=== PATIENT | female | born 1945 | race Caucasian/White ===

== ENCOUNTER 2020-10-14 07:45 | Outpatient (REF) | payer MEDICARE, SELFPAY ==
[2020-10-14 10:03] LABS: MANUAL DIFF FLAG NO
[2020-10-14 10:05] LABS: Basophils Absolute Auto 0.1 X10*3/uL (0.0-0.2); Basophils Percent Auto 0.9 % (0-2); Eosinophils Absolute Auto 0.1 X10*3/uL (0.0-0.4); Eosinophils Percent Auto 1.6 % (0-4); Hematocrit 35.2 % (37-47); Hemoglobin 11.4 g/dl (12.0-16.0); Imm Gran Abs Auto 0.02 X10*3/uL (0.00-0.03); Imm Gran Pct Auto 0.3 % (0.0-0.4); Lymphocytes Absolute Auto 1.6 X10*3/uL (1.2-4.9); Lymphocytes Percent Auto 23.1 % (20-40); Mean Corpuscular HGB Conc 32.4 g/dl (31.0-35.0); Mean Corpuscular Hemoglobin 31.4 pg (27.0-33.0); Mean Platelet Volume 9.8 fL (9.4-12.3); Monocytes Absolute Auto 0.7 X10*3/uL (0.1-1.2); Monocytes Percent Auto 10.2 % (2-11); Neutrophils Absolute Auto 4.4 X10*3/uL (2.0-8.3); Neutrophils Percent Auto 63.9 % (45-73); Platelet Count 321 X10*3/uL (160-400); Red Blood Count 3.63 X10*6/uL (4.20-5.50); Red Cell Distribution Width 13.2 % (11.0-16.0); White Blood Count 6.9 X10*3/uL (4.8-10.8)
[2020-10-14 10:54] LABS: Alanine Aminotransferase 18 U/L (0-31); Albumin Level 4.3 g/dL (3.5-5.0); Alkaline Phosphatase 66 U/L (39-117); Anion Gap 15 (12-20); Aspartate Amino Transferase 15 U/L (5-31); Bilirubin Total 0.4 mg/dL (0.0-1.0); Blood Urea Nitrogen 46 mg/dL (9-16); Calcium 9.6 mg/dL (8.4-10.2); Carbon Dioxide 25 mmol/L (22-29); Chloride 103 mmol/L (96-108); Cholesterol 248 mg/dL; Estimated Glomerular Filt Rate 40; Glucose Fasting 104 mg/dL (60-99); HDL Cholesterol 82 mg/dL; LDL Cholesterol Calculated 155 mg/dl; Potassium 5.5 mmol/L (3.3-5.1); Sodium 137 mmol/L (135-145); Total Protein 7.5 g/dL (6.5-8.0); Triglycerides 58 mg/dL
== END 2020-10-14 07:46 | disposition home or self-care (01) ==
LOC: HO.10HDL 07:45
PROVIDERS: Visit Provider Physician Assistant
DX: Z00.00 Encounter for general adult medical examination without abnormal findings (principal); Z13.6 Encounter for screening for cardiovascular disorders
CPT/HCPCS: 36415; 80053; 80061; 85025

== ENCOUNTER 2020-10-28 10:56 | Outpatient (REF) | payer MEDICARE, SELFPAY ==
[2020-10-28 13:51] LABS: Alanine Aminotransferase 16 U/L (0-31); Albumin Level 4.3 g/dL (3.5-5.0); Alkaline Phosphatase 65 U/L (39-117); Anion Gap 16 (12-20); Aspartate Amino Transferase 14 U/L (5-31); Bilirubin Total 0.5 mg/dL (0.0-1.0); Blood Urea Nitrogen 33 mg/dL (9-16); Calcium 9.3 mg/dL (8.4-10.2); Carbon Dioxide 25 mmol/L (22-29); Chloride 101 mmol/L (96-108); Estimated Glomerular Filt Rate 51; Glucose Fasting 96 mg/dL (60-99); Potassium 4.5 mmol/L (3.3-5.1); Sodium 137 mmol/L (135-145); Total Protein 7.5 g/dL (6.5-8.0)
== END 2020-10-28 10:57 | disposition home or self-care (01) ==
LOC: HO.MANLDS 10:56
PROVIDERS: PCP Internal Medicine; Visit Provider Physician Assistant
DX: E87.5 Hyperkalemia (principal)
CPT/HCPCS: 36415; 80053

== ENCOUNTER 2021-07-02 07:16 | Outpatient (REF) | payer MEDICARE, SELFPAY ==
--- NOTE | ~2021-07-02 | MM_ITS ---
EXAMINATION: MM SCREENING DIGITAL BREAST TOMOSYNTHESIS, BILATERAL CLINICAL INFORMATION: Screening. Asymptomatic. The lifetime risk of breast cancer based on the Tyrer-Cuzick Model is 2.7%. COMPARISON: Mammography: September 22, 2018 and studies dating back to July 23, 2013 TECHNIQUE: Digital breast tomosynthesis is performed in both the craniocaudal and mediolateral oblique views along with computer-aided detection (CAD). Synthesized 2D images are generated from the tomosynthesis. FINDINGS: The breasts are almost entirely fatty (ACR BI-RADS breast composition Category a). There are no significant masses, abnormal calcifications, or other abnormalities. MM/MM tomosynthesis screening BI IMPRESSION: There are no significant changes from prior study. ASSESSMENT: BI-RADS 1: Negative RECOMMENDATION: Routine annual mammography screening. This patient's information was entered into a reminder system with a target due date for their next mammogram.
== END 2021-07-02 07:17 | disposition home or self-care (01) ==
LOC: HO.MAMMO 07:16
PROVIDERS: PCP Physician Assistant; Visit Provider Internal Medicine
DX: Z12.31 Encounter for screening mammogram for malignant neoplasm of breast (principal)
CPT/HCPCS: 77063; 77067

== ENCOUNTER 2021-11-09 09:44 | Outpatient (REF) | payer MEDICARE, SELFPAY ==
[2021-11-09 11:20] LABS: MANUAL DIFF FLAG NO
[2021-11-09 11:25] LABS: Basophils Absolute Auto 0.1 X10*3/uL (0.0-0.2); Eosinophils Absolute Auto 0.1 X10*3/uL (0.0-0.4); Eosinophils Percent Auto 0.7 % (0-4); Hematocrit 35.5 % (37.0-47.0); Hemoglobin 11.7 g/dl (12.0-16.0); Imm Gran Abs Auto 0.03 X10*3/uL (0.00-0.03); Imm Gran Pct Auto 0.4 % (0.0-0.4); Lymphocytes Absolute Auto 1.3 X10*3/uL (1.2-4.9); Mean Corpuscular Hemoglobin 31.1 pg (27.0-33.0); Mean Corpuscular Volume 94.4 fL (80.0-98.0); Mean Platelet Volume 9.8 fL (9.4-12.3); Monocytes Absolute Auto 0.6 X10*3/uL (0.1-1.2); Monocytes Percent Auto 8.7 % (2-11); Neutrophils Absolute Auto 4.7 x10*3/uL (2.0-8.3); Neutrophils Percent Auto 70.2 % (45-73); Platelet Count 309 X10*3/uL (160-400); Red Blood Count 3.76 X10*6/uL (4.20-5.50); Red Cell Distribution Width 13.4 % (11.0-16.0); White Blood Count 6.7 X10*3/uL (4.8-10.8)
[2021-11-09 11:45] LABS: Alanine Aminotransferase 14 U/L (0-31); Albumin Level 4.3 g/dL (3.5-5.0); Alkaline Phosphatase 70 U/L (39-117); Anion Gap 15 (12-20); Aspartate Amino Transferase 14 U/L (5-31); Bilirubin Total 0.6 mg/dL (0.0-1.0); Blood Urea Nitrogen 29 mg/dL (9-16); Calcium 9.5 mg/dL (8.4-10.2); Carbon Dioxide 25 mmol/L (22-29); Chloride 103 mmol/L (96-108); Cholesterol 249 mg/dL; Estimated Glomerular Filt Rate 47; Glucose Random 114 mg/dL (60-115); HDL Cholesterol 72 mg/dL; LDL Cholesterol Calculated 162 mg/dl; Potassium 4.8 mmol/L (3.3-5.1); Sodium 138 mmol/L (135-145); Total Protein 7.6 g/dL (6.5-8.0); Triglycerides 79 mg/dL
== END 2021-11-09 09:45 | disposition home or self-care (01) ==
LOC: HO.MANLDS 09:44
PROVIDERS: Visit Provider Physician Assistant
DX: Z00.00 Encounter for general adult medical examination without abnormal findings (principal)
CPT/HCPCS: 36415; 80053; 80061; 85025

== ENCOUNTER 2022-07-09 07:20 | Outpatient (REF) | payer MEDICARE, SELFPAY ==
--- NOTE | ~2022-07-09 | MM_ITS ---
EXAMINATION: MM SCREENING DIGITAL BREAST TOMOSYNTHESIS, BILATERAL CLINICAL INFORMATION: Screening. Asymptomatic. The lifetime risk of breast cancer based on the Tyrer-Cuzick Model is 3%. COMPARISON: Mammography: 07/02/2021, 09/22/2018, 09/16/2017 TECHNIQUE: Digital breast tomosynthesis is performed in both the craniocaudal and mediolateral oblique views along with computer-aided detection (CAD). Synthesized 2D images are generated from the tomosynthesis. FINDINGS: The breasts are almost entirely fatty (ACR BI-RADS breast composition Category a). There are no significant masses, abnormal calcifications, or other abnormalities. Background stromal markings are similar to prior studies. No developing density or architectural abnormality. There is a biopsy clip marker again noted anterior 12:30 left breast. The axilla are unremarkable. MM/MM tomosynthesis screening BI IMPRESSION: No mammographic evidence of malignancy. ASSESSMENT: BI-RADS 1: Negative RECOMMENDATION: Routine annual mammography screening. This patient's information was entered into a reminder system with a target due date for their next mammogram.
== END 2022-07-09 07:21 | disposition home or self-care (01) ==
LOC: HO.MAMMO 07:20
PROVIDERS: PCP Physician Assistant; Visit Provider Physician Assistant
DX: Z12.31 Encounter for screening mammogram for malignant neoplasm of breast (principal)
CPT/HCPCS: 77063; 77067

== ENCOUNTER 2022-11-22 09:38 | Outpatient (REF) | payer MEDICARE, SELFPAY ==
[2022-11-22 11:16] LABS: MANUAL DIFF FLAG NO
[2022-11-22 11:59] LABS: Basophils Absolute Auto 0.1 X10*3/uL (0.0-0.2); Basophils Percent Auto 1.2 % (0-2); Eosinophils Absolute Auto 0.1 X10*3/uL (0.0-0.4); Hematocrit 35.6 % (37.0-47.0); Hemoglobin 11.5 g/dl (12.0-16.0); Imm Gran Abs Auto 0.02 X10*3/uL (0.00-0.03); Imm Gran Pct Auto 0.3 % (0.0-0.4); Lymphocytes Absolute Auto 1.3 X10*3/uL (1.2-4.9); Mean Corpuscular HGB Conc 32.3 g/dl (31.0-35.0); Mean Corpuscular Hemoglobin 29.9 pg (27.0-33.0); Mean Corpuscular Volume 92.7 fL (80.0-98.0); Monocytes Absolute Auto 0.6 X10*3/uL (0.1-1.2); Monocytes Percent Auto 9.7 % (2-11); Neutrophils Absolute Auto 3.9 x10*3/uL (2.0-8.3); Neutrophils Percent Auto 65.8 % (45-73); Platelet Count 325 X10*3/uL (160-400); Red Blood Count 3.84 X10*6/uL (4.20-5.50); Red Cell Distribution Width 13.6 % (11.0-16.0)
[2022-11-22 12:01] LABS: Alanine Aminotransferase 12 U/L (0-31); Albumin Level 4.3 g/dL (3.5-5.0); Alkaline Phosphatase 60 U/L (39-117); Anion Gap 15 (12-20); Aspartate Amino Transferase 11 U/L (5-31); Bilirubin Total 0.6 mg/dL (0.0-1.0); Blood Urea Nitrogen 36 mg/dL (9-16); Calcium 10.2 mg/dL (8.4-10.2); Carbon Dioxide 24 mmol/L (22-29); Chloride 105 mmol/L (96-108); Cholesterol 246 mg/dL; Estimated Glomerular Filt Rate 42; Glucose Random 102 mg/dL (60-115); HDL Cholesterol 64 mg/dL; LDL Cholesterol Calculated 162 mg/dl; Potassium 4.7 mmol/L (3.3-5.1); Sodium 139 mmol/L (135-145); Total Protein 7.7 g/dL (6.5-8.0); Triglycerides 102 mg/dL
== END 2022-11-22 09:39 | disposition home or self-care (01) ==
LOC: HO.MANLDS 09:38
PROVIDERS: Visit Provider Physician Assistant
DX: Z00.00 Encounter for general adult medical examination without abnormal findings (principal)
CPT/HCPCS: 36415; 80053; 80061; 85025

== ENCOUNTER 2023-11-28 09:33 | Outpatient (REF) | payer MEDICARE, SELFPAY ==
[2023-11-28 13:33] LABS: MANUAL DIFF FLAG NO
[2023-11-28 13:53] LABS: Basophils Absolute Auto 0.1 X10*3/uL (0.0-0.2); Basophils Percent Auto 1.3 % (0-2); Eosinophils Absolute Auto 0.1 X10*3/uL (0.0-0.4); Eosinophils Percent Auto 1.4 % (0-4); Hematocrit 35.5 % (37.0-47.0); Hemoglobin 11.6 g/dl (12.0-16.0); Imm Gran Abs Auto 0.01 X10*3/uL (0.00-0.03); Imm Gran Pct Auto 0.2 % (0.0-0.4); Lymphocytes Absolute Auto 1.3 X10*3/uL (1.2-4.9); Lymphocytes Percent Auto 24.2 % (20-40); Mean Corpuscular HGB Conc 32.7 g/dl (31.0-35.0); Mean Corpuscular Hemoglobin 31.3 pg (27.0-33.0); Mean Corpuscular Volume 95.7 fL (80.0-98.0); Mean Platelet Volume 9.8 fL (9.4-12.3); Monocytes Absolute Auto 0.5 X10*3/uL (0.1-1.2); Neutrophils Absolute Auto 3.5 x10*3/uL (2.0-8.3); Neutrophils Percent Auto 63.9 % (45-73); Platelet Count 316 X10*3/uL (160-400); Red Blood Count 3.71 X10*6/uL (4.20-5.50); Red Cell Distribution Width 14.3 % (11.0-16.0); White Blood Count 5.5 X10*3/uL (4.8-10.8)
[2023-11-28 14:05] LABS: Estimated Average Glucose 108 mg/dL; Hemoglobin A1c % 5.4 % (<6.0)
[2023-11-28 14:14] LABS: Alanine Aminotransferase 16 U/L (0-31); Albumin Level 4.3 g/dL (3.5-5.0); Alkaline Phosphatase 66 U/L (39-117); Anion Gap 15 (12-20); Aspartate Amino Transferase 18 U/L (5-31); Bilirubin Total 0.5 mg/dL (0.0-1.0); Blood Urea Nitrogen 31 mg/dL (9-16); Calcium 10.2 mg/dL (8.4-10.2); Carbon Dioxide 27 mmol/L (22-29); Chloride 105 mmol/L (96-108); Cholesterol 268 mg/dL (<200); Estimated Glomerular Filt Rate 44; Glucose Random 105 mg/dL (60-115); HDL Cholesterol 74 mg/dL (>40); Iron 146 mcg/dL (30-160); LDL Cholesterol Calculated 179 mg/dL (<100); Percent Iron Saturation 50 % (15-50); Potassium 4.5 mmol/L (3.3-5.1); Sodium 142 mmol/L (135-145); Total Iron Binding Capacity 291 mcg/dL (228-428); Total Protein 7.9 g/dL (6.5-8.0); Triglycerides 76 mg/dL (<150); Unsaturated Iron Binding 145 ug/dL
[2023-11-28 14:34] LABS: Ferritin 45 ng/mL (10-250); Thyroid Stimulating Hormone 1.34 uIU/mL (0.32-4.0); Vitamin D 25-OH Total 58.7 ng/mL (>30)
[2023-11-28 14:37] LABS: Folate 13.5 ng/mL (> or = 4.0); Vitamin B12 568 pg/mL (200-900)
== END 2023-11-28 09:34 | disposition home or self-care (01) ==
LOC: HO.MANLDS 09:33
PROVIDERS: Visit Provider Physician Assistant
DX: Z00.00 Encounter for general adult medical examination without abnormal findings (principal); D50.8 Other iron deficiency anemias; Z13.1 Encounter for screening for diabetes mellitus; Z13.89 Encounter for screening for other disorder
CPT/HCPCS: 36415; 80053; 80061; 82306; 82607; 82728; 82746; 83036; 83540; 84439; 84443; 85025

== ENCOUNTER 2024-08-21 11:21 | Outpatient (REF) | payer MEDICARE, SELFPAY ==
--- OUTSIDE RECORDS SUMMARY | 2024-08-21 14:06 | XMS_ITS | Clinical Summary ---
Author Organization [facility] Address [address] [place] [address] Care Team Providers Care Prep Room Supervisor Name Role Phone Genaro Garcia Primary Care Provider [phone] Allergies No known active allergies Medications omeprazole (PriLOSEC) 20 mg capsule Take 20 mg by mouth 2 times a day. 1 8 Active hydroCHLOROthia zide (HYDRODIURIL) 25 mg tablet Take 1 tablet (25 mg total) by mouth daily. May resume in 1 week if BP>125/80 1 8 Active lisinopril (PRINIVIL,ZESTR IL) 10 mg tablet Take 1 tablet (10 mg total) by mouth daily. May resume in 1 week if BP>125/80 1 8 Active acetaminophen (TYLENOL) 325 mg tablet Take 2 tablets (650 mg total) by mouth every 6 hours. 8 Active ibuprofen (MOTRIN) 800 mg tablet Take 800 mg by mouth daily as needed (Pt. reports only taking 400mg PO daily). 1 9 Active amoxicillin (AMOXIL) 500 mg capsule Take 1 capsule (500 mg total) by mouth before procedure (4 capsules one hour before dental procedure). 12 capsule 3 0 Active Active Problems Problem Noted Date Diagnosed Date Osteoarthritis of right knee 04/25/2018 HTN (hypertension) 04/11/2018 Gastroesophageal reflux disease without esophagi tis 04/11/2018 Arthritis of right knee 02/16/2018 Overview (02/16/2018): Added automatically from request for surgery [id number] Gait instability Social History Tobacco Use Types Packs/Day Years Used Date Smoking Tobacco: Never Smokeless Tobacco: Never Alcohol Use Standard Drinks/Week Comments Yes 0 (1 standard drink = 0.6 oz pur e alcohol) Comments Unknown Sex and Gender Information Value Date Recorded Sex Assigned at Not on file Legal Sex Female 9:48 AM EDT Gender Identity Not on file Sexual Orientation Not on file Last Filed Vital Signs Vital Sign Reading Time Taken Comments Blood Pressure 136/83 03/23/2021 9:03 AM EDT Pulse 100 03/23/2021 9:03 AM EDT Temperature 36.5 ??C (97.7 ??F) 04/27/2018 9:06 AM ES T Respiratory Rate 18 03/23/2021 9:03 AM EDT Oxygen Saturation 99% 04/27/2018 9:06 AM EST Inhaled Oxygen Concentration - - Weight 88.8 kg (195 lb 13 oz) 04/26/2018 6:12 AM EST Height 152.4 cm (5') 04/25/2018 9:32 AM EST Body Mass Index 38.24 04/25/2018 9:32 AM EST Plan of Treatment Health Maintenance Due Date Last Done Comments Hepatitis C Screening 1945 Medicare AWV 09/27/1946 DTaP,Tdap,and Td Vaccines (1 - Tdap) 09/27/1969 Osteoporosis Screening 09/27/1997 Zoster Vaccines (1 of 2) 09/27/1997 Basic Metabolic Panel 04/26/2019 04/26/2018 , 04/25/2018, 04/13/2018 RSV Vaccine (60+ years old and patients) (1 - 1-dose 75+ series) 09/27/2022 COVID-19 Vaccine (3 - season) 2024 08/28/2020, 08/07/2020 Influenza Vaccine (#1) 2024 , 01/31/2020, 02/20/2019, Additional history exists Alcohol/Substance Use Screening 05/30/2024 Depression Screening and Follow-Up 05/30/2024 Health Care Proxy Review 05/30/2024 Social Drivers of Health Annual Screening 05/30/2024 Pneumococcal Vaccine: 50+ Years Completed 04/16/2019, 08/02/2017 Hepatitis B Vaccines Aged Out No long er eligible based on patient's age to complete this topic Medical Devices Implanted Type Area Boss Dyer Device Identifier Shelf Expiration Date Model / Serial / Lot Cement Radiopaque Full Dose 40gr Simplex P - [id number] Implanted:Qty: 2 on 04/25/2018 by Glen Dubois MD at [facility] Implant Right: Knee RAPHAEL 01/28/2020 [id number] / / [id number] Component Femoral Cruciate Retaining Cemented Standard [place] Chromium Right Size 6 Persona - [id number] Implanted:Qty: 1 on 04/25/2018 by Glen Dubois MD at [facility] Implant Right: Knee Reddy 04/28/2027 [id number] 0-02 / / [id number] Component Patella Cemented All Poly Dome [id number] Persona - [id number] Implanted:Qty: 1 on 04/25/2018 by Glen Dubois MD at [facility] Implant Right: Knee Reddy 02/26/2026 [id number] 0-32 / / [id number] Baseplate Tibial Stemmed Cemented Right Size D 5 Degree Persona - [id number] Implanted:Qty: 1 on 04/25/2018 by Glen Dubois MD at [facility] Implant Right: Knee Reddy 12/28/2027 [id number] 7-02 / / [id number] Insert Tibial Articular Surface Cruciate Retaining Right Size Cd 3-9 13mm Persona - [id number] Implanted:Qty: 1 on 04/25/2018 by Glen Dubois MD at [facility] Implant Right: Knee Reddy 08/26/2022 [id number] 4-13 / / [id number] Procedures * Due to [place] state law, this organization might not be sharing negative HIV tests. Procedure Name Priority Date/Time Associated Diagnosis Comments BASIC METABOLIC PANEL Routine 04/26/2018 4:34 AM EST from Last 3 Months or Most Recently Relevant to Health Maintenance Results * Due to [place] [employer] law, this organization might not be sharing negative HIV tests. * (ABNORMAL) Basic Metabolic Panel (04/26/2018 4:34 AM EST) NA 136 135 - 145 mmol/L 04/26/2018 5:47 AM [facility] K 4.6 3.5 - 5.3 mmol/L 04/26/2018 5:47 AM [facility] Cl 103 97 - 110 mmol/L 04/26/2018 5:47 AM [facility] CO2 26 24 - 32 mmol/L 04/26/2018 5:47 AM [facility] BUN 21 7 - 23 mg/dL 04/26/2018 5:47 AM [facility] Creatinine 0.86 0.50 - 1.20 mg/dL 04/26/2018 5:47 AM [facility] Glucose 127(H) 70 - 99 mg/dL 04/26/2018 5:47 AM [facility] Calcium 9.0 8.7 - 10.7 mg/dL 04/26/2018 5:47 AM [facility] Anion Gap 7 5 - 15 04/26/2018 5:47 AM [facility] eGFR Non- 68(L) >=90 mL/min/BSA 04/26/2018 5:47 AM [facility] Comment: Units = mL/min/1.73 m2 Glomerular Filtration Rate (GFR) is estimated based on the CKD-EPI Creatinine Equation (2009). For Americans multiply results by 1.159. Stage ?Description ? GFR 1 ? Normal ? >=90 mL/min/BSA 2 ? Mildly decreased GFR ? 60-89 mL/min/BSA 3 ? Moderately decreased GFR ? 30-59 mL/min/BSA 4 ? Severely decreased GFR ? 15-29 mL/min/BSA 5 ? Kidney Failure ? <15 mL/min/BSA Blood specimen (specimen) Structure of peripheral vein / Unknown Venipuncture / Unknown 04/26/2018 4:34 AM EST 04/26/2018 5:10 AM EST us Glen Dubois MD LAB BLOOD ORDERABLES Darya ortiz Result [facility] [address] [address], from Last 3 Months or Most Recently Relevant to Health Maintenance Insurance MEDICARE [facility] Advance Directives Documents on File Type Date Recorded Patient Partner Manager Expl anation Health Care Proxy 12/16/2020 * Presumed Full Code (Latest Code Status on File) Date Activated Date Inactivated Comments 04/25/2018 6:14 PM 04/27/2018 1:09 PM * Full Code Date Activated Date Inactivated Comments 04/25/2018 9:59 AM 04/25/2018 6:14 PM Care Teams Prep Room Supervisor Relationship Specialty Start Date End Date Genaro Garcia [address] [place] [id number] PCP - General Internal Medicine 01/19/18
--- OUTSIDE RECORDS SUMMARY | 2024-08-21 14:06 | XMS_ITS | Data Portability ---
Author Organization [facility] Service Address [address] [place] [address] Assessment Encounter Date Assessment Date Assessment LastModified by Organization Details LastModified Time 11/03/2020 11/03/2020 Patient presente d to office today for their Medicare Annual Wellness Visit. Education was provided on healthy nutrition, including a diet rich in fruits and vegetables, minimizing simple carbohydrates, salt, and saturated fats. Encouraged regular cardiovascular exercise such as walking at least 30 minutes daily, 5 times per week. Emphasized preventive health measures and educated pt on fall prevention and community-based lifestyle interventions to help reduce health risks and promote healthy living. Not available 11/03/2020 08:59:06 11/28/2023 11/28/2023 The patient denies recent falls or recurrent falls. Denies instability, weakness, abnormal gait, or difficulties with movement. The patient wears correct, supportive shoes and is not otherwise severely visually impaired. The patient is full weight bearing and if using the assistance of a cane or walker feels supported and stable with the use of such devices. All medical conditions have been taken into account that may pose a risk for the patient for falls. Home catia, carpets and/or rugs do not pose a challenge for the patient. The patient has been educated about the use of vitamin D supplementation for bone health and prevention of hypotensive episodes that may increase risk for fall. All question and concerns were answered to the patient's satisfaction. [email or web address] Not available 11/28/2023 09:20:41 Plan of Treatment Reminders Order Date Submit Date Provider Last Modified By Organization Details Last Modified Time Details Appointments ANNUAL EXAM 2024 09:00A M MAYI SU Not available Not available Not available Lab CMP, serum or plasma 2023 024 [facility], [address] [place] [address], [id number], 11/28/2023 09:15:17 CBC w/ auto diff 2023 024 [facility], [address] [place] [address], [id number], 11/28/2023 09:15:17 lipid panel, blood 2023 024 [facility], [address] [place] [address], [id number], 11/28/2023 09:15:17 vitamin D, 25-hydrox y, total, serum 2023 024 [facility], [address] [place] [address], 13634, 11/28/2023 09:15:17 hemoglobi n A1c, QN, blood 2023 024 [facility], [address] [place] [address], [id number], 11/28/2023 09:15:17 TSH + free T4, serum 2023 024 [facility], [address] [place] [address], [id number], 11/28/2023 09:15:17 vitamin B12 + folate, serum or blood 2023 024 [facility], [address] [place] [address], 26187, 11/28/2023 09:15:17 iron + TIBC + ferritin, serum 2023 024 [facility], [address] [place] [address], [id number], 11/28/2023 09:15:17 CMP, serum or plasma 2022 023 [facility], [address] [place] [address], [id number], 11/23/2022 11:22:42 lipid panel, blood 2022 023 [facility], [address] [place] [address], [id number], 11/23/2022 11:22:42 CBC w/ auto diff 2022 023 [facility], [address] [place] [address], [id number], 11/23/2022 11:22:42 CMP, serum or plasma 2022 023 [facility], [address] [place] [address], [id number], 11/23/2022 11:22:42 lipid panel, blood 2022 023 [facility], [address] [place] [address], [id number], 11/23/2022 11:22:42 CBC w/ auto diff 2022 023 [facility], [address] [place] [address], [id number], 11/23/2022 11:22:42 CBC w/ auto diff 2021 022 [facility], [address] [place] [address], [id number], 11/09/2021 09:30:31 CMP, serum or plasma 2021 022 [facility], [address] [place] [address], 05433, 11/10/2021 13:01:55 lipid panel, blood 2021 022 [facility], [address] [place] [address], 43459, 11/09/2021 09:30:31 lipid panel, blood 2020 [facility], [address] [place] [address], [place], [address], 11/03/2020 09:15:35 CBC w/ auto diff 2020 [facility], [address] [place] [address], [id number], 11/03/2020 09:15:35 CMP, serum or plasma 2020 [facility], [address] [place] [address], [id number], 11/03/2020 09:15:35 Referral None recorded. Procedures None recorded. Surgeries None recorded. Imaging None recorded. Medication Orders omeprazol e 20 mg capsule,d elayed release 2023 024 [facility]1111, [address] [place], [address], 11/28/2023 09:13:27 lisinopri l 5 mg tablet 2023 024 [facility], [address] [place], [address], 11/28/2023 09:13:30 triamcino lone acetonide 0.1 % topical ointment 2023 024 [facility], [address] [place], [address], 11/28/2023 09:13:36 valacyclo vir 1 gram tablet 2023 024 [facility], [address] [place], [address], 10/07/2023 10:59:57 prednison e 10 mg tablet 2023 024 [facility] [address] [place], [address], 11/28/2023 08:58:33 triamcino lone acetonide 0.1 % topical cream 2022 [email or web address] [facility] [address] [place], [address], 11/28/2023 09:12:43 lisinopri l 5 mg tablet 2021 022 [facility] [address] [place], [address], 11/09/2021 09:16:04 omeprazol e 20 mg capsule,d elayed release 2021 022 [facility] [address] [place], [address], 11/09/2021 09:16:03 lisinopri l 5 mg tablet 2020 021 [facility] [address] [place], [address], 11/05/2020 03:35:04 Patient TargetsNo targets recorded. Patient Instructions Encounter Date Encounter Id Patient Instructions Last Modified By Organization Details Last Modified Time 11/03/2020 [id number] advance care planning: care instructions [email or web address] Not available 11/03/2020 09:14:11 Discussed and explained advance directives such as standard forms to the {{patient caregiv er patient and caregiver}}. Face to face discussion lasted for a duration of ___ minutes. Not available 11/03/2020 08:59:06 Reason for Referral None Reported. Results Created Date Observation Date Name Description Value Unit Range Abnormal Flag Note LastModifiedBy Organization Detail LastModifiedTime 07/03/19 22 07/02/2021 SHANIKAO , lei johnson, digit al, bilat eral No observ ation record ed. [email or web address] [facility] [address] [place], [id number], 07/03/2021 09:08:30 07/12/19 23 07/09/2022 MAMMO , scree alex, digit al, bilat eral No observ ation record ed. [facility] [address] [place], [address], 07/12/2022 09:00:54 Result Notes None recorded. Problems Name Problem SNOMED Code Status Onset Date Resolution Date Notes Provider Name and Address Organization Details Recorded Time Essential hypertensi on 06336336 Active 2017 Not Available [facility] 3 13:08:47 Osteoarthr itis of knee 293377466 Active 2017 Not Available [facility] 3 13:08:47 Gastroesop hageal reflux disease 377148714 Active 2021 Not Available [facility] 3 13:08:47 Atopic dermatitis 95077577 Active 2022 Not Available [facility] 3 13:08:47 Allergic reaction to food 813280670 Active 2023 MAYI SU [address] [place] [address], [address], [facility] 4 10:56:53 Herpes labialis 8985059 Active 2023 MAYI SU [address] [place] [address], [address], [facility] 4 10:57:23 Iron deficiency anemia 21780353 Active 2023 MAYI SU [address] [place] [address], [phone], [facility] 4 09:08:50 Problem Notes None recorded. Procedures Surgical History Date Name Laterality Status Provider Name and Address Organization Details Recorded Time 03/30/20 18 total knee replacement completed Savi Argueta NP, S [address] [place], [address], [facility] 04/25/2018 15:46:37 Imaging Results Imaging Date Name Status LastModified by Organiz ation Details LastModified Time 07/02/2021 MAMMO, screening, digital, bilateral completed [email or web address] [address] [place], [address], 07/03/2021 09:08:30 07/09/2022 MAMMO, screening, digital, bilateral completed [email or web address] [address] [place], [address], 07/12/2022 09:00:54 Procedure Notes None recorded. Medical Equipment None Reported. Allergies No known drug allergies Medications Name Sig Start Date Stop Date Status Note LastModified by Organization Details LastModified Time celecoxib 200 mg capsule TAKE 1 CAPSULE BY MOUTH EVERY DAY FOR 14 DAYS 10/06 completed Not Available Not Available Not Available amoxicillin 500 mg capsule TAKE 4 CAPSULE BY MOUTH SINGLE DOSE TAKE 30 MINUTES PRIOR TO DENTAL PROCEDURE 10/06 completed Not Available Not Available Not Available prednisone 10 mg tablet PLEASE SEE ATTACHED FOR DETAILED DIRECTION S 11/27 completed Not Available Not Available Not Available doxycycline hyclate 100 mg capsule TAKE 1 CAPSULE BY MOUTH EVERY 12 HOURS FOR 3 WEEKS FOR SURGICAL PROPHYLAX IS 10/06 completed Not Available Not Available Not Available ibuprofen 800 mg tablet Take 1 tablet every day by oral route as needed. 02/20 completed Not Available Not Available Not Available valacyclovi r 1 gram tablet TAKE 1 TABLET BY MOUTH EVERY 12 HOURS FOR 7 DAYS active Not Available Not Available No t Available tramadol 50 mg tablet TAKE 1 TABLET BY MOUTH AT BEDTIME NEEDED FOR PAIN 10/06 completed Not Available Not Available Not Available triamcinolo ne acetonide 0.1 % topical cream APPLY THIN COAT TO AFFECTED AREA TWICE A DAY 11/27 completed Not Available Not Available Not Available prednisolon e acetate 1 % eye drops,suspe nsion PLEASE SEE ATTACHED FOR DETAILED DIRECTION S 10/06 completed Not Available Not Available Not Available triamcinolo ne acetonide 0.1 % topical ointment APPLY THIN COAT TO AFFECTED AREA TWICE A DAY active Not Available Not Available No t Available lisinopril 10 mg tablet Take 0.5 tablets every day by oral route. 11/03 completed Not Available Not Available Not Available ibuprofen 400 mg tablet TAKE 1 TABLET BY MOUTH TWICE A DAY NEEDED 10/06 completed Not Available Not Available Not Available docusate sodium 100 mg capsule TAKE 1 CAPSULE BY MOUTH TWICE A DAY 10/06 completed Not Available Not Available Not Available omeprazole 20 mg capsule,del ayed release TAKE 1 CAPSULE BY MOUTH EVERY DAY active Not Available Not Available No t Available aspirin 81 mg chewable tablet CHEW 1 TABLET BY MOUTH TWICE A DAY 10/06 completed Not Available Not Available Not Available lisinopril 5 mg tablet TAKE 1 TABLET BY MOUTH EVERY DAY 2023 active Not Available Not Available Not Avai lable hydrochloro thiazide 25 mg tablet TAKE 1 TABLET BY MOUTH EVERY DAY 2023 active Not Available Not Available Not Avai lable mupirocin 2 % topical ointment 08/22 completed Not Available Not Available Not Available gabapentin 100 mg capsule Take by oral route for 30 days. 08/22 completed Not Available Not Available Not Available metoclopram daniela 10 mg tablet TAKE 1 TABLET BY MOUTH THREE TIMES A DAY NEEDED 10/06 completed Not Available Not Available Not Available oxycodone 5 mg tablet TAKE 1/2 TABLET BY MOUTH EVERY 4 HOURS NEEDED FOR PAIN FOR 7 DAYS 10/06 completed Not Available Not Available Not Available enoxaparin 30 mg/0.3 mL subcutaneou s syringe 08/22 completed Not Available Not Available Not Available chlorhexidi ne gluconate 0.12 % mouthwash 08/22 completed Not Available Not Available Not Available Vitals Date Recorded Body height Body mass index (BMI) Body weight Heart rate Systolic blood pressure Diastolic blood pressure Provider Name and Address Organization Details Last Updated DateTime 1 154.31 cm 41.7 kg/m2 63258.7 3 g 101 /min 130 mm[Hg] 76 mm[Hg] [facility] 1 09:02:35 Date Recorded Body height Body mass index (BMI) Body weight Oxygen saturation Oxygen saturation in Arterial blood by Pulse oximetry Heart rate Systolic blood pressure Diastolic blood pressure Provider Name and Address Organization Details Last Updated DateTime 2 154.31 cm 42.1 kg/m2 079805. 27 g 100 % 100 % 81 /min 122 mm[Hg] 70 mm[Hg] Shaina Kee [facility] 2 09:08:30 Date Recorded Body height Body mass index (BMI) Body weight Heart rate Oxygen saturation Oxygen saturation in Arterial blood by Pulse oximetry Systolic blood pressure Diastolic blood pressure Provider Name and Address Organization Details Last Updated DateTime 3 152.4 cm 42.2 kg/m2 45025.9 5 g 80 /min 100 % 100 % 130 mm[Hg] 80 mm[Hg] Azalia Hans [facility] 3 09:08:10 Date Recorded Body height Body mass index (BMI) Body weight Heart rate Oxygen saturation Oxygen saturation in Arterial blood by Pulse oximetry Systolic blood pressure Diastolic blood pressure Provider Name and Address Organization Details Last Updated DateTime 4 152.4 cm 41.1 kg/m2 32799.1 9 g 78 /min 97 % 97 % 128 mm[Hg] 78 mm[Hg] Elsa Riley [facility] 4 10:45:20 Date Recorded Body height Body mass index (BMI) Body weight Heart rate Oxygen saturation Oxygen saturation in Arterial blood by Pulse oximetry Systolic blood pressure Diastolic blood pressure Provider Name and Address Organization Details Last Updated DateTime 4 154.94 cm 40.4 kg/m2 65401.0 5 g 77 /min 99 % 99 % 118 mm[Hg] 72 mm[Hg] Thiago Betancur [facility] 4 09:00:41 Social History Question Answer Notes LastModified by Organizat ion Details LastModified Time Tobacco Smoking Status Former Smoker 30 years ago Not Available [facility] 04/01/2020 03:36:24 What Was The Date Of Your Most Recent Tobacco Screening? 11/28/2023 [email or web address] Information not available 11/28/2023 Do You Or Have You Ever Used Any Other Forms Of Tobacco Or Nicotine? No [email or web address] Information not available 11/22/2022 Sex: Unknown Functional Status None recorded. Mental Status None recorded. Family History Nothing Reported. Medical History No medical history recorded. Gynecological HistoryNo gynecological history recorded. Obstetrics History GPAL:G 0 P 0 0 0 0 Immunizations Vaccine Type Date Status Note Provider Nam e and Address Organization Details Recorded Time Influenza, split virus, quadrivalent, preservative 8 completed Nanette Guevara [facility] 02/08/2018 09:05:36 Influenza, split virus, quadrivalent, preservative 1 [facility] 14:22:34 COVID-19, mRNA, LNP-S, PF, 30 mcg/0.3 mL dose 2 completed Edel Rondon [facility] 12/18/2021 08:11:50 influenza, unspecified formulation 3 completed Fausto Garcia [facility] 02/06/2023 19:08:17 Influenza, split virus, quadrivalent, preservative 9 completed Leda Huber [facility] 02/23/2019 11:19:57 Pneumococcal conjugate PCV 13 8 completed Leda Huber [facility] 02/23/2019 11:22:06 pneumococcal polysaccharide PPV23 9 completed Fausto Garcia [facility] 04/20/2019 07:43:47 COVID-19 vaccine, vector-nr, rS-ChAdOx1, PF, 0.5 mL 1 completed Brina Gold [facility] 10/28/2020 13:46:13 COVID-19 vaccine, vector-nr, rS-ChAdOx1, PF, 0.5 mL 1 completed Brina Gold [facility] 10/28/2020 13:46:21 Past Encounters Encounter ID Performer Location Encounter Start Date Encounter Closed Date Diagnosis/Indication Diagnosis SNOMED-CT Code Diagnosis ICD10 Code Diagnosis Note [id number] Savi Argueta NP, S [facility] [address] [facility],[place] [address] 02/06/2018 08:50:29 02/06/2018 11:37:01 Screening procedure 45469124 Z13.9 Osteoarthr itis of knee 457256361 M17.0 will have surg. right knee Essential hypertension 20243125 I10 well controlled [id number] Savi Argueta NP, S [facility] [address] [facility],[place] [address] 08/22/2018 08:46:49 08/22/2018 09:24:15 Adult health examination 747562769 Z00.01 Active or passive immunization 743066572 Z23 Osteoarthr itis of knee 346340647 M17.0 s/p surg. right knee Essential hypertension 47469393 I10 well controlled [id number] August KRISTY Kennedy [facility] [address] [facility],[place] [address] 02/20/2019 08:49:37 02/20/2019 09:40:37 Essential hypertension 47599067 I10 well controlled Osteoarthr itis of knee 344635596 M17.9 uses ibuprofen as needed Acid reflux 538380320 K2 1.9 Body mass index 40+ - severely obese 006159764 Z68.41 working on weight Advance care planning 71 6019243 Z71.89 hcp/poa already in place [id number] MAYI SU [facility] [address] [facility],[place] [address] 10/29/2019 08:56:54 10/29/2019 09:50:45 Adult health examination 933967567 Z00.00 bw f/u Screening for cardiovascular system disease 485114161 Z13.6 bw f/u Screening for malignant neoplasm of colon 009749081 Z12.11 will re-discuss when the start to do elective procedures Essential hypertension 15100002 I10 needs refills Acid reflux 924244819 K2 1.9 needs refills [id number] MAYI SU [facility] [address] [facility],[place] [address] 11/03/2020 08:56:30 11/03/2020 10:00:35 Adult health examination 859763202 Z00.00 bw f/u before next year Screening for cardiovascular system disease 730262350 Z13.6 BP 130/76 Screening for malignant neoplasm of colon 165709310 Z12.11 refuses Screening mammography 24 261302 Z12.31 advised, will schedule by herself Essential hypertension 66807016 I10 needs refills [id number] MAYI SU [facility] [address] [facility],[place] [address] 11/09/2021 08:50:28 11/09/2021 09:58:01 Active or passive immunization 194703708 Z23 up to date Adult heal th examination 729029850 Z00.00 bw f/u before next year Gastroesop hageal reflux disease 694614931 K21.9 will send refills Essential hypertension 04757431 I10 needs refillsBP is excellent [id number] MAYI SU [facility] [address] [facility], [place] [address] 11/22/2022 09:00:32 11/22/2022 09:45:26 Active or passive immunization 941836386 Z23 up to date Adult [facility] th examination 649457171 Z00.00 bw f/u before next year Atopic dermatitis 920364 01 L20.9 needs refill [id number] MAYI SU [facility] [address] [facility] [address] [address] 10/07/2023 10:14:55 10/10/2023 08:32:47 Depression screening 475361058 Z13.31 stable Allergic r eaction to food 505286954 T78.1XXA start pred Herpes labialis 1847942 B00.1 start valtrex [id number] MAYI SU [facility] [address] [facility], [place] [address] 11/28/2023 08:55:05 11/28/2023 10:04:26 Active or passive immunization 037966995 Z23 up to date Adult heal th examination 643286923 Z00.00 BP is excellent Iron defic iency anemia 40168743 D50.8 needs recheck Essential hypertension 05250776 I10 needs refillsBP is excellent Gastroesop hageal reflux disease 366603587 K21.9 will send refills Atopic dermatitis 651490 01 L20.9 needs refilldoin g well on itprefers the ointment At low risk for fall 439 185209 Z91.81 low riskesp with new knee replacemen t Health Concerns Section Related Observation LastModified by Organization Detai ls LastModified Time None Recorded Concern Status LastModified by Organization Details LastModified Time None Recorded Advance Directives Directive None Recorded Payers Encounter Date Sequence Insurance Name Policy Number Policy Alvarez Covered Member ID Alvarez Member ID Guarantor Name 11/03/2020 2 [place] [id number] Sue Griffith [id number] Sue Griffith 11/03/2020 1 [place] Sue R Griffith [id number] Sue Griffith 11/09/2021 2 [place] [id number] Sue Griffith [id number] Sue Griffith 11/09/2021 1 [place] Sue R Griffith [id number] Sue Griffith 11/22/2022 2 [place] [id number] Sue Griffith [id number] Sue Griffith 11/22/2022 1 [place] Sue R Griffith [id number] Sue Griffith 10/07/2023 2 [place] [id number] Sue Griffith [id number] Sue Griffith 10/07/2023 1 [place] Sue R Griffith [id number] Sue Griffith 11/28/2023 2 [place] [id number] Sue Griffith [id number] Sue Griffith 11/28/2023 1 [place] Sue R Griffith [id number] Sue Griffith Notes Date Note Type Note Provider Name a nd Address Organization Details Recorded Time 1 text/html Medicare Annual Wellness VisitReported bypatient.Diet and Nutrition:healthy diet; discussed vitamin and supplement use; discussed portion control; discussed maintaining calcium balance; discussed diet improvement; working on diet now Fracture Risk:no history of fractures; no recent explained fracture; no sudden unexplained fractures; no previous musculoskeletal injuries Physical Activity:exercises on a regular basis; discussed weightbearing activities; discussed exercise habits Depression Risk:never feels sad, empty, or tearful; no loss of interest in activities; no significant changes in weight; no sleep disturbances or insomnia; no agitation; no loss of energy; no feelings of worthlessness or guilt; no thoughts of suicide;history of mood disorders;history of depression; coping with her son's prognosis Orientation:no disorientation to time; no disorientation to date; no disorientation to place Concentration and Memory:no decreased concentrating ability; no memory lapses or loss; does not forget words Speech/Motor difficulties:no speech difficulties; no difficulty expressing formulated concepts; no difficulty with fine manipulative tasks; no difficulty writing/copying; no slowed reaction time; does not knock things over when trying to pick them up Hearing:no loss of hearing Vision:no vision problems; glasses last eye exam was last year Activities of Daily Living:able to bathe with limited or no assistance; able to contol urination and bowels; able to dress with limited or no assistance; able to feed self with limited or no assistance; able to get out of chair or bed with limited or no assistance; able to groom with limited or no assistance; able to toilet with limited or no assistance Instrumental Activities of Daily Living:able to do house work with limited or no assistance; able to grocery shop with limited or no assistance; able to manage medications with limited or no assistance; able to manage money with limited or no assistance; able to prepare meals with limited or no assistance; able to use the phone with limited or no assistance Falls Risk Assessment:no frequent falls while walking; no fall in the past year; no fall since last visit; no dizziness/vertigo Home Safety:no unsafe catia hazzards; no unsafe stairs; no unsafe gas appliances; working smoke/CO detectors; wears protective head gear for biking/high velocity; use of seatbelts; practicing 'safer sex'; no vision or hearing loss while driving; no fire arms; has hand bars in the bathroom/shower; good lighting in the home MAYI SU [address] [place], [address], [facility] 11/03/2020 09:35:39 2 text/html Annual WellnessReported bypatient.Diet and Nutrition:healthy diet; discussed vitamin and supplement use; discussed portion control; discussed maintaining calcium balance; discussed diet improvement Fracture Risk:no history of fractures; no recent explained fracture; no sudden unexplained fractures; no previous musculoskeletal injuries Physical Activity:exercises on a regular basis; recent increase in physical activity; good physical condition; discussed weightbearing activities; discussed exercise habits Additional Lifestyle Factors:no tobacco use; no alcohol intake; stopped drinking alcohol Depression Risk:never feels sad, empty, or tearful; no loss of interest in activities; no significant changes in weight; no sleep disturbances or insomnia; no agitation; no loss of energy; no feelings of worthlessness or guilt; no thoughts of suicide;history of mood disorders;history of depression; son recently ; doing okay, dealing with the appropriately Hearing:no loss of hearing Vision:no vision problems; will being going this summer has mild cataract development MAYI SU [address] [place] [address], [phone] 11/09/2021 09:31:51 3 text/html Annual WellnessReported bypatient.Diet and Nutrition:healthy diet Fracture Risk:no history of fractures; no recent explained fracture; no sudden unexplained fractures; no previous musculoskeletal injuries Physical Activity:exercises on a regular basis; recent increase in physical activity; good physical condition Additional Lifestyle Factors:no tobacco use; no alcohol intake; stopped drinking alcohol Depression Risk:never feels sad, empty, or tearful; no loss of interest in activities; no significant changes in weight; no sleep disturbances or insomnia; no agitation; no loss of energy; no feelings of worthlessness or guilt; no thoughts of suicide; no history of depression; no history of mood disorders Hearing:no loss of hearing Vision:no vision problems MAYI SU [address] [place], [address] 11/22/2022 09:30:03 4 text/html c/o lip swelling the patient reports that she ate a sumo orange, first timethe patient reports she immediately developed lip swellingdidn't think it was related, ate another one the next day and caused the same reactionsounds like she has an allergy to either the orange or any of the pesticides it may have been exposed to was using benadryl and warm salt warm per her dentist sounds like she also developed canker soreswill start her on combo therapywill update me next week MAYI SU [address] [place], [address], [facility] 10/07/2023 11:10:22 4 text/html Annual WellnessReported bypatient.Diet and Nutrition:healthy diet; discussed vitamin and supplement use; discussed portion control; discussed maintaining calcium balance; discussed diet improvement Fracture Risk:no history of fractures; no recent explained fracture; no sudden unexplained fractures; no previous musculoskeletal injuries Physical Activity:exercises on a regular basis; recent increase in physical activity; good physical condition Additional Lifestyle Factors:no tobacco use; drinks alcohol (mild-moderate) Depression Risk:never feels sad, empty, or tearful; no loss of interest in activities; no significant changes in weight; no sleep disturbances or insomnia; no agitation; no loss of energy; no feelings of worthlessness or guilt; no thoughts of suicide; no history of depression; no history of mood disorders Hearing:no loss of hearing Vision:no vision problems has since improved from her allergic reactionthe patient is allergic to sumo oranges MAYI SU [address] [place], [address], [facility] 11/28/2023 09:24:38 OBGyn Episode No OBEpisode recorded.
--- OUTSIDE RECORDS SUMMARY | 2024-08-21 14:06 | XMS_ITS | Referral Summary ---
Author Organization [facility] Address [address] [place] [address] Care Team Providers Care Hot Stick Worker Name Role Phone Genaro Garcia Primary Care Provider [phone] Allergies No known active allergies Medications omeprazole [...] (02/16/2018): Added automatically from request for surgery [id number] Gait instability Social History Tobacco Use Types [...] 04/25/2018 9:32 AM EST Plan of Treatment Not on file Medical Devices Implanted Type Area Architect Marine Device Identifier Shelf Expiration Date Model / Serial / Lot Cement Radiopaque Full Dose 40gr Simplex P - [id number] Implanted:Qty: 2 on 04/25/2018 by Glen Dubois MD at [facility] Implant Right: Knee RAPHAEL 01/28/2020 [id number] / / [id number] Component Femoral Cruciate Retaining Cemented Standard [place] Chromium Right Size 6 Persona - [id number] Implanted:Qty: 1 on 04/25/2018 by Glen Dubois MD at [facility] Implant Right: Knee Reddy 04/28/2027 42-5026-06 0-02 / / [id number] Component Patella Cemented All Poly Dome [id number] Persona - [id number] Implanted:Qty: 1 on 04/25/2018 by Glen Dubois MD at [facility] Implant Right: Knee Reddy 02/26/2026 42-5400-00 0-32 / / [id number] Baseplate Tibial Stemmed Cemented Right Size D 5 Degree Persona - [id number] Implanted:Qty: 1 on 04/25/2018 by Glen Dubois MD at [facility] Implant Right: Knee Reddy 12/28/2027 42-5320-06 11-28 [id number] Insert Tibial Articular Surface Cruciate Retaining Right Size Cd 3-9 13mm Persona - [id number] Implanted:Qty: 1 on 04/25/2018 by Glen Dubois MD at [facility] Implant Right: Knee Reddy 08/26/2022 42-5210-00 09-09 [id number] Procedures * Due to [place] Splinter.[employer] law, this organization might not be sharing negative HIV tests. Procedure Name Priority Date/Time Associated Diagnosis Comments BASIC METABOLIC PANEL Routine 04/26/2018 4:34 AM EST from Last 3 Months or Most Recently Relevant to Health Maintenance Results * Due to [place] Splinter.[employer] law, this organization might not be sharing negative HIV tests. * (ABNORMAL) Basic Metabolic Panel (04/26/2018 4:34 AM EST) NA 136 135 - 145 mmol/L 04/26/2018 5:47 AM EST [facility] K 4.6 3.5 - 5.3 mmol/L 04/26/2018 5:47 AM EST [facility] Cl 103 97 - 110 mmol/L 04/26/2018 5:47 AM EST [facility] CO2 26 24 - 32 mmol/L 04/26/2018 5:47 AM EST [facility] BUN 21 7 - 23 mg/dL 04/26/2018 5:47 AM EST [facility] Creatinine 0.86 0.50 - 1.20 mg/dL 04/26/2018 5:47 AM EST [facility] Glucose 127(H) 70 - 99 mg/dL 04/26/2018 5:47 AM EST [facility] Calcium 9.0 8.7 - 10.7 mg/dL 04/26/2018 5:47 AM EST [facility] Anion Gap 7 5 - 15 04/26/2018 5:47 AM EST [facility] eGFR Non- 68(L) >=90 mL/min/BSA 04/26/2018 5:47 AM EST [facility] Comment: Units = mL/min/1.73 m2 Glomerular Filtration [...] MD LAB BLOOD ORDERABLES Darya ortiz Result Performing Organization Address City/State/[facility] [place] [address], from Last 3 Months or Most Recently Relevant to Health Maintenance Insurance MEDICARE BCBS MCR SUPP Advance Directives Documents on File Type Date Recorded Patient Scrap Piler Expl [facility] Care Proxy 12/16/2020 * Presumed Full Code (Latest Code Status on File) Date Activated Date Inactivated Comments 04/25/2018 6:14 PM 04/27/2018 1:09 PM * Full Code Date Activated Date Inactivated Comments 04/25/2018 9:59 AM 04/25/2018 6:14 PM Care Teams Hot Stick Worker Relationship Specialty Start Date End Date Genaro Garcia [address] [place] [address] PCP - General Internal Medicine 01/19/18
== END 2024-08-21 11:22 | disposition home or self-care (01) ==
LOC: HO.MAMMO 11:21
PROVIDERS: PCP Internal Medicine; Visit Provider Physician Assistant
DX: Z12.31 Encounter for screening mammogram for malignant neoplasm of breast (principal)
CPT/HCPCS: 77063; 77067

== ENCOUNTER → 2024-08-21 11:45 | Outpatient (BNV) | payer MEDICARE, SELFPAY | PROVIDERS: PCP Internal Medicine; Visit Provider Internal Medicine | DX: Z12.31 Encounter for screening mammogram for malignant neoplasm of breast (principal) | CPT/HCPCS: 77063; 77067 ==

== ENCOUNTER 2024-12-11 07:34 | Outpatient (REF) | payer MEDICARE, SELFPAY ==
--- OUTSIDE RECORDS SUMMARY | 2024-12-11 07:35 | XMS_ITS | Continuity of Care Document ---
Author Name [facility] Organization [facility] Care Team Providers Care Drywall Contractor Name Role Phone [facility] Unavailable Unavailable Social History Combined list of available smoking, tobacco, and other social history from Department of Defense and Veterans Affairs facilities. Social History Type Response Date Comment Sourc e This section is an empty social history section. [facility]
--- OUTSIDE RECORDS SUMMARY | 2024-12-11 07:36 | XMS_ITS | Patient Health Record ---
Author Organization [facility] Address [address] [place] [address] Care Team Providers Care Hardwood Sawyer Name Role Phone Pan Aguirre Unavailable [phone] Reason For Referral No Information Plan Of Treatment No Information
--- OUTSIDE RECORDS SUMMARY | 2024-12-11 07:36 | XMS_ITS | Clinical Summary ---
Author Organization [facility] Address [address] [place] [address] Care Team Providers Care Directional Driller Name Role Phone Genaro Garcia Primary Care Provider [phone] Allergies No known active allergies Medications omeprazole [...] (02/16/2018): Added automatically from request for surgery [id number] Gait instability Social History Tobacco Use Types [...] 100 03/23/2021 9:03 AM EDT Temperature 36.5 C (97.7 F) 04/27/2018 9:06 AM EST Respiratory Rate 18 03/23/2021 9:03 AM EDT [...] - 1-dose 75+ series) 09/27/2022 COVID-19 Vaccine ( season) 2024 08/28/2020, 08/07/2020 Alcohol/Substance Use Screening 05/30/2024 Depression Screening and Follow-Up 05/30/2024 Health Care Proxy Review 05/30/2024 Social Drivers of Health Annual Screening 05/30/2024 Influenza Vaccine (#1) 2025 , 01/31/2020, 02/20/2019, Additional history exists Pneumococcal Vaccine: 50+ Years Completed 04/16/2019, 08/02/2017 Hepatitis B Vaccines Aged Out No long er eligible based on patient's age to complete this topic Medical Devices Implanted Type Area Blind Eyeletter Device Identifier Shelf Expiration Date Model / Serial / Lot Cement Radiopaque Full Dose 40gr Simplex P - [id number] Implanted:Qty: 2 on 04/25/2018 by Glen Dubois MD at [facility] Implant Right: Knee RAPHAEL 01/28/2020 [id number] / / [id number] Component Femoral Cruciate Retaining Cemented Standard [place] Chromium Right Size 6 Persona - [id number] Implanted:Qty: 1 on 04/25/2018 by Glen Dubois MD at [facility] Implant Right: Knee Reddy 04/28/2027 42-5026-06 0-02 / / [id number] Component Patella Cemented All Poly Dome 8cxp73ph Persona - [id number] Implanted:Qty: 1 on 04/25/2018 by Glen Dubois MD at [facility] Implant Right: Knee Reddy 02/26/2026 42-5400-00 0-32 / / [id number] Baseplate Tibial Stemmed Cemented Right Size D 5 Degree Persona - [id number] Implanted:Qty: 1 on 04/25/2018 by Glen Dubois MD at [facility] Implant Right: Knee Reddy 12/28/2027 42-5320-06 7-02 / / [id number] Insert Tibial Articular Surface Cruciate Retaining Right Size Cd 3-9 13mm Persona - [id number] Implanted:Qty: 1 on 04/25/2018 by Glen Dubois MD at [facility] Implant Right: Knee Reddy 08/26/2022 42-5210-00 4-13 / / [id number] Procedures * Due to [place] state law, this organization might not be sharing negative HIV tests. Procedure Name Priority Date/Time Associated Diagnosis Comments BASIC METABOLIC PANEL Routine 04/26/2018 4:34 AM EST from Last 3 Months or Most Recently Relevant to Health Maintenance Results * Due to [place] Valid[employer] law, this organization might not be sharing negative HIV tests. * (ABNORMAL) Basic Metabolic Panel (04/26/2018 4:34 AM EST) NA 136 135 - 145 mmol/L 04/26/2018 5:47 AM EST [facility] K 4.6 3.5 - 5.3 mmol/L 04/26/2018 5:47 AM EST [facility] Cl 103 97 - 110 mmol/L 04/26/2018 5:47 AM EST [facility] CO2 26 24 - 32 mmol/L 04/26/2018 5:47 AM EST [facility] BUN 21 7 - 23 mg/dL 04/26/2018 5:47 AM EST [facility] Creatinine 0.86 0.50 - 1.20 mg/dL 04/26/2018 5:47 AM EST [facility] Glucose 127(H) 70 - 99 mg/dL 04/26/2018 5:47 AM EST [facility] Calcium 9.0 8.7 - 10.7 mg/dL 04/26/2018 5:47 AM EST [facility] Anion Gap 7 5 - 15 04/26/2018 5:47 AM EST [facility] eGFR Non- 68(L) >=90 mL/min/BSA 04/26/2018 5:47 AM EST [facility] Comment: Units = mL/min/1.73 m2 Glomerular Filtration Rate (GFR) is estimated based on the CKD-EPI Creatinine Equation (2009). For Americans multiply results by 1.159. Stage Description GFR 1 Normal >=90 mL/min/BSA 2 Mildly decreased GFR 60-89 mL/min/BSA 3 Moderately decreased GFR 30-59 mL/min/BSA 4 Severely decreased GFR 15-29 mL/min/BSA 5 Kidney Failure <15 mL/min/BSA Blood specimen (specimen) Structure of peripheral vein / Unknown Venipuncture / Unknown 04/26/2018 4:34 AM EST 04/26/2018 5:10 AM EST us Glen Dubois MD LAB BLOOD ORDERABLES Darya ortiz Result [facility] [address] [place] [address], from Last 3 Months or Most Recently Relevant to Health Maintenance Insurance MEDICARE [facility] Advance Directives Documents on File Type Date Recorded Patient Licensed Investment Sales Assistant Expl anation Health Care Proxy 12/16/2020 * Presumed Full Code (Latest Code Status on File) Date Activated Date Inactivated Comments 04/25/2018 6:14 PM 04/27/2018 1:09 PM * Full Code Date Activated Date Inactivated Comments 04/25/2018 9:59 AM 04/25/2018 6:14 PM Care Teams Directional Driller Relationship Specialty Start Date End Date Genaro Garcia [address] [place] [address] PCP - General Internal Medicine 01/19/18
--- OUTSIDE RECORDS SUMMARY | 2024-12-11 07:36 | XMS_ITS | Continuity of Care Document ---
Author Organization [place] - [facility], [facility] Address [address] [place] [address] [place] [address] Assessment No assessment recorded. Plan of Treatment Reminders Order Date Submit Date Provider Last Modified By Organization Details Last Modified Time Details Appointments ANNUAL EXAM 2025 09:00A M MAYI SU Not available Not available Not available Lab CMP, serum or plasma 2024 025 [facility], [address] [place] [address], [id number], 12/07/2024 09:21:37 CBC w/ auto diff 2024 025 [facility], [address] [place] [address], [id number], 12/07/2024 09:21:37 lipid panel, blood 2024 025 [facility], [address] [place] [address], [id number], 12/07/2024 09:21:37 hemoglobi n A1c, QN, blood 2024 025 [facility], [address] [place] [address], [id number], 12/07/2024 09:21:37 Referral None recorded. Procedures None recorded. Surgeries None recorded. Imaging None recorded. Medication Orders lisinopri l 5 mg tablet 2024 025 [facility], [address] [place], [address], 12/07/2024 09:08:16 hydrochlo rothiazid e 25 mg tablet 2024 025 [facility], [address] [place], [address], 12/07/2024 09:08:16 Patient TargetsNo targets recorded. Patient InstructionsNo instructions recorded. Reason for Referral None Reported. Problems Name Problem SNOMED Code Status Onset Date Resolution Date Notes Provider Name and Address Organization Details Recorded Time Essential hypertensi on 29768654 Active 2017 Not Available [facility] 3 13:08:47 Osteoarthr itis of knee 333090606 Active 2017 Not Available [facility] 3 13:08:47 Gastroesop hageal reflux disease 288932798 Active 2021 Not Available [facility] 3 13:08:47 Atopic dermatitis 59627960 Active 2022 Not Available [facility] 3 13:08:47 Allergic reaction to food 705570740 Active 2023 MAYI SU [address] [place] [address], [phone], [facility] 4 10:56:53 Herpes labialis 2451559 Active 2023 MAYI SU [address] [place] [address], [phone], [facility] 4 10:57:23 Iron deficiency anemia 31626862 Active 2023 MAYI SU [address] [place] [address], [phone], [facility] 4 09:08:50 Problem Notes None recorded. Procedures Surgical History Date Name Laterality Status Provider Name and Address Organization Details Recorded Time 03/30/20 18 total knee replacement completed Savi Argueta NP, [address] [place] [address], [phone], [facility] 04/25/2018 15:46:37 Imaging Results None recorded. Procedure Notes None recorded. Medical Equipment None [...] TAKE 30 MINUTES PRIOR TO DENTAL PROCEDURE 12/07 completed Not Available Not Available Not Available [...] MOUTH EVERY 12 HOURS FOR 7 DAYS 12/07 completed Not Available Not Available Not Available tramadol 50 mg tablet TAKE 1 [...] TAKE 1 TABLET BY MOUTH EVERY DAY 2024 active Not Available Not Available Not Avai lable hydrochloro thiazide 25 mg tablet TAKE 1 TABLET BY MOUTH EVERY DAY 2024 active Not Available Not Available Not Avai [...] in Arterial blood by Pulse oximetry Systolic And Diastolic Provider Name and Address Organization Details Last Updated DateTime 5 154.94 cm 39.1 kg/m2 10748.5 4 g 85 /min 96 % 96 % 130/82 mm[Hg] Elsa Borrego [facility] 5 08:59:29 Social History Question Answer Notes LastModified by Organizat ion Details LastModified Time Tobacco Smoking Status Former Smoker 30 years ago Not Available [facility] 04/01/2020 03:36:24 What Was The Date Of Your Most Recent Tobacco Screening? 11/28/2023 [email or web address] Information not available 11/28/2023 Sex: Unknown Functional Status Question Answer Note LastModified by Organization D etails LastModified Time Do you or have you ever used any other forms of tobacco or nicotine? No [email or web address] Information not available 11/22/2022 Mental Status None recorded. Family History Nothing Reported. Medical History No medical history recorded. Gynecological HistoryNo gynecological history recorded. Obstetrics History GPAL:G 0 P 0 0 0 0 Immunizations Vaccine Type Date Status Note Provider Nam e and Address Organization Details Recorded Time Influenza, split virus, quadrivalent, preservative 02/07/20 18 completed Nanette villareal [facility] 02/08/2018 09:05:36 Influenza, split virus, quadrivalent, preservative 03/18/20 21 completed Nanette villareal [facility] 03/20/2021 14:22:34 COVID-19, mRNA, LNP-S, PF, 30 mcg/0.3 mL dose 12/16/19 22 completed Edel villareal [facility] 12/18/2021 08:11:50 influenza, unspecified formulation 02/05/20 23 completed Fausto villareal [facility] 02/06/2023 19:08:17 influenza, unspecified formulation 02/06/20 24 completed MAYI SU [address] [place] [address], [phone], [facility] 12/07/2024 09:09:00 Influenza, split virus, quadrivalent, preservative 02/21/20 19 completed Leda villareal [facility] 02/23/2019 11:19:57 Pneumococcal conjugate PCV 13 08/03/19 18 [facility] 11:22:06 pneumococcal polysaccharide PPV23 04/16/20 19 [facility] 07:43:47 COVID-19 vaccine, vector-nr, rS-ChAdOx1, PF, 0.5 mL 08/08/19 21 completed Brina villareal [facility] 10/28/2020 13:46:13 COVID-19 vaccine, vector-nr, rS-ChAdOx1, PF, 0.5 mL 08/29/19 21 completed Brina villareal [facility] 10/28/2020 13:46:21 Past Encounters Encounter ID Performer Location Encounter Start Date Encounter Closed Date Diagnosis/Indication Diagnosis SNOMED-CT Code Diagnosis ICD10 Code Diagnosis Note [id number] Genaro Garcia DO [facility] Internal [facility] [address] [facility],[place] [address] 12/07/2024 08:52:10 12/07/2024 09:20:26 Active or passive immunization 615585931 Z23 up to date General ex amination of patient 580902481 Z00.00 BP is excellent Essential hypertension 29964853 I10 needs refillsBP is excellent Health Concerns Section Related Observation LastModified by Organization Detai ls LastModified Time None Recorded Concern Status LastModified by Organization Details LastModified Time None Recorded Payers Encounter Date Sequence Insurance Name Policy Number Policy Alvarez Covered Member ID Alvarez Member ID Guarantor Name 12/07/2024 2 [place] [id number] Sue Donnellyer [id number] Sue Griffith 12/07/2024 1 [place] [employer] Sue Griffith [id number] Sue Griffith Notes Date Note Type Note Provider Name a nd Address Organization Details Recorded Time 5 text/html Annual WellnessReported bypatient.Diet and Nutrition:healthy diet; discussed vitamin and supplement use; discussed portion control; discussed maintaining calcium balance Fracture Risk:no history of fractures; no recent explained fracture; no sudden unexplained fractures; no previous musculoskeletal injuries Physical Activity:exercises on a regular basis; recent increase in physical activity; good physical condition; discussed weightbearing activities; discussed exercise habits Additional Lifestyle Factors:no tobacco use; drinks alcohol (mild-moderate) Depression Risk:never feels sad, empty, or tearful; no loss of interest in activities; no significant changes in weight; no sleep disturbances or insomnia; no agitation; no loss of energy; no feelings of worthlessness or guilt; no thoughts of suicide; no history of depression; no history of mood disorders Hearing:no loss of hearing Vision:no vision problemsNotes:last dentist appt was 4 mos, goes every 4 mos MAYI SU [address] [place] [address], [phone], [facility] 12/07/2024 09:16:42 OBGyn Episode No OBEpisode recorded.
[2024-12-11 13:51] LABS: MANUAL DIFF FLAG NO
[2024-12-11 14:06] LABS: Hematocrit 33.6 % (37.0-47.0); Hemoglobin 11.3 g/dl (12.0-16.0); Imm Gran Abs Auto 0.01 X10*3/uL (0.00-0.03); Imm Gran Pct Auto 0.2 % (0.0-0.4); Lymphocytes Absolute Auto 1.6 X10*3/uL (1.2-4.9); Mean Corpuscular HGB Conc 33.6 g/dl (31.0-35.0); Mean Corpuscular Hemoglobin 31.7 pg (27.0-33.0); Mean Corpuscular Volume 94.1 fL (80.0-98.0); NRBC Abs Auto 0.000 X10*3/uL (0.0-0.012); NRBC Pct Auto 0.0 /100WBC (0.0-0.2); Platelet Count 291 X10*3/uL (160-400); Red Blood Count 3.57 X10*6/uL (4.20-5.50); White Blood Count 5.8 X10*3/uL (4.8-10.8)
[2024-12-11 14:14] LABS: Hemoglobin A1C 102.5825 umol/L; Total Hemoglobin (HGBA1C) 2965.7128 umol/L
[2024-12-11 14:40] LABS: Alanine Aminotransferase 18 U/L (0-31); Albumin Level 4.1 g/dL (3.5-5.0); Alkaline Phosphatase 58 U/L (39-117); Anion Gap 11 (12-20); Aspartate Amino Transferase 23 U/L (5-31); Blood Urea Nitrogen 29 mg/dL (9-16); Calcium 9.4 mg/dL (8.4-10.2); Carbon Dioxide 29 mmol/L (22-29); Chloride 106 mmol/L (96-108); Cholesterol 238 mg/dL (<200); Estimated Glomerular Filt Rate 48; HDL Cholesterol 61 mg/dL (>40); Potassium 4.3 mmol/L (3.3-5.1); Sodium 142 mmol/L (135-145); Total Protein 7.1 g/dL (6.5-8.0); Triglycerides 112 mg/dL (<150)
== END 2024-12-11 07:35 | disposition home or self-care (01) ==
LOC: HO.MANLDS 07:34
PROVIDERS: Visit Provider Physician Assistant
DX: Z00.00 Encounter for general adult medical examination without abnormal findings (principal); Z13.1 Encounter for screening for diabetes mellitus; Z13.6 Encounter for screening for cardiovascular disorders
CPT/HCPCS: 36415; 80053; 80061; 83036; 85025